=== PATIENT | male | born 2000 | race Caucasian/White ===

== ENCOUNTER 2023-10-27 18:57 | Emergency (ER) | payer BC ==
[~2023-10-27] VITALS: Ht 168.9 cm; Wt 75.5 kg
[2023-10-27 22:31] VITALS: BP 121/75; TEMP 98.9; O2SAT 100
== END 2023-10-27 22:37 | disposition home or self-care (01) ==
LOC: M ED 18:57
DX: S93.401A Sprain of unspecified ligament of right ankle, initial encounter (principal); W10.1XXA Fall (on)(from) sidewalk curb, initial encounter; Y92.410 Unspecified street and highway as the place of occurrence of the external cause; Y93.89 Activity, other specified; Y99.9 Unspecified external cause status; Z91.89 Other specified personal risk factors, not elsewhere classified